=== PATIENT | male | born 2000 | race Caucasian/White ===

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

== ENCOUNTER 2020-05-09 15:03 | Emergency (ER) | payer OTHER ==
[~2020-05-09] VITALS: Ht 167.6 cm; Wt 81.6 kg
[2020-05-09 15:36] VITALS: BP 143/64
--- NOTE | 2020-05-09 15:40 | NUR ---
C/O HEADACHE, CHILL X 4 DAYS, VOMITING X TODAY. ALSO C/O BUMP AT BACK X A YEAR. COUSIN HAD COVID TESTED +. MED HX: DENIES
--- NOTE | 2020-05-09 16:15 | NUR ---
Patient discharged with v/s stable. Written and verbal after care instructions given and explained. Patient alert, oriented and verbalized understanding of instructions. Ambulatory with steady gait. All questions addressed prior to discharge. ID band removed. Patient advised to follow up with PMD. Rx of ACETAMINOPHEN & ZOFRAN given. Patient educated on indication of medication including possible reaction and side effects. Opportunity to ask questions provided and answered.
--- NOTE | 2020-05-13 10:23 | NUR ---
called pt to come back for covid re-swab. left v-mail
== END 2020-05-09 16:15 | disposition home or self-care (01) ==
LOC: MED 15:03
DX: R51 Headache (principal); R11.10 Vomiting, unspecified
CPT/HCPCS: 99283

== ENCOUNTER 2020-11-03 12:13 | Emergency (ER) | payer OTHER ==
[~2020-11-03] VITALS: Ht 167.6 cm; Wt 92.1 kg
[2020-11-03 12:58] VITALS: BP 111/64
--- NOTE | 2020-11-03 15:56 | NUR ---
PER XRAY UNABLE TO FIND PT IN LOBBY, ERMD AWARE
== END 2020-11-03 15:56 | disposition left against medical advice (07) ==
LOC: MED 12:13
DX: R07.9 Chest pain, unspecified (principal); M79.621 Pain in right upper arm; M79.622 Pain in left upper arm
CPT/HCPCS: 99283